=== PATIENT | male | born 2000 | race Caucasian/White ===

== ENCOUNTER 2019-06-29 22:58 | Emergency (ER) | payer MEDICAID ==
[~2019-06-29] VITALS: Ht 172.7 cm; Wt 59.0 kg
[2019-06-29 23:03] VITALS: BP_SYST 131
--- NOTE | 2019-06-29 23:03 | NUR ---
Patient to ER bed 8 to gown for evaluation. Side rails up. Report given to VIANEY LIRA.
--- NOTE | 2019-06-29 23:19 | NUR ---
Pt BIB EMS with c/o right lower back pain. Pt A&Ox4. Pt states he took break at work around 9 pm and lower right back began to hurt. Pt states pain got progressively worse and called 911. Pt states pain is 10/10. Pt presents with unlabored breathing and clear bilateral lung sounds. Pt denies any urinary problems, nausea, vomiting, and fever. Pt states he has not eaten all day due to lack of appetite. Will continue to monitor.
--- NOTE | 2019-06-29 23:45 | NUR ---
ER Dr. Pa at bedside examining patient.
[2019-06-29 23:58] VITALS: BP_SYST 126
--- NOTE | 2019-06-29 23:58 | NUR ---
Patient given written and verbal discharge instructions and verbalizes understanding. ER MD Pa discussed with patient the results and treatment provided. Patient in stable condition. ID arm band removed. No Rx given. Patient educated on pain management and to follow up with PMD. Pain Scale 0/10. Opportunity for questions provided and answered. Medication side effect fact sheet provided.
== END 2019-06-29 23:58 | disposition home or self-care (01) ==
LOC: SED 22:58
DX: S33.5XXA Sprain of ligaments of lumbar spine, initial encounter (principal); X50.1XXA Overexertion from prolonged static or awkward postures, initial encounter; Y93.89 Activity, other specified; Y92.89 Other specified places as the place of occurrence of the external cause; Y99.0 Civilian activity done for income or pay
CPT/HCPCS: 99283